=== PATIENT | male | born 1965 | race Caucasian/White ===

== ENCOUNTER → 2016-07-01 | Outpatient (REF) | payer OTHER ==
[~2016-07-01] MED LIST: AMLO5TAB2 PO; ASPI1TAB PO; LISI-538 PO; PRIL40CA PO; SIMV20TA2 PO; TYLE500T78 PO; VITA10002 PO; XARE15TA PO
[2016-07-01 18:20] LABS: ALBUMIN 3.7 GM/DL (3.2-5.2); ALBUMIN/GLOBULIN RATIO 1.03 (1.00-1.93); ALKALINE PHOSPHATASE 71 U/L (45-117); ALT/SGPT 25 U/L (12-78); ANION GAP 8 MEQ/L (8-16); AST/SGOT 16 U/L (15-37); BILIRUBIN,TOTAL 0.3 MG/DL (0.2-1.0); BLOOD UREA NITROGEN 13 MG/DL (7-18); CALCIUM LEVEL 8.7 MG/DL (8.5-10.1); CARBON DIOXIDE LEVEL 26 MEQ/L (21-32); CHLORIDE LEVEL 104 MEQ/L (98-107); CHOLESTEROL LEVEL 165 MG/DL (<200); CREATININE FOR GFR 0.93 MG/DL (0.70-1.30); GLOMERULAR FILTRATION RATE > 60.0 (>56); GLUCOSE, FASTING 115 MG/DL (70-105); POTASSIUM SERUM 3.7 MEQ/L (3.5-5.1); SODIUM LEVEL 138 MEQ/L (136-145); TOTAL PROTEIN 7.3 GM/DL (6.4-8.2); TRIGLYCERIDES LEVEL 313 MG/DL (<150)
== END ==
LOC: M SFHCPLAZ 15:01
PROVIDERS: ATTEND Nurse Practitioner Family
DX: I10 Essential (primary) hypertension (principal); E78.2 Mixed hyperlipidemia

== ENCOUNTER → 2016-07-17 | Outpatient (CLI) | payer OTHER ==
[~2016-07-17] MED LIST changes: +ISOVUE-370 76% 100ML VIAL (Q9967) As Ordered ONE
--- NOTE | 2016-07-17 11:25 | REP ---
Clinical: Acute shortness of breath. Comparison: 01/15/2016. Technique: Axial contrast enhanced images from the thoracic inlet to the upper abdomen using 100 ml Isovue 370 intravenous contrast material with multiplanar re-formations. Findings: Satisfactory enhancement of the pulmonary vasculature is achieved and no filling defects are identified to suggest pulmonary embolus. Further evaluation of the mediastinum demonstrates normal thoracic aorta, heart and pericardium. Small hiatal hernia noted. The bilateral lung goldberg are well aerated and clear without consolidation, nodule or mass lesion. No pleural effusion or pneumothorax. Tracheobronchial tree is patent. No adenopathy noted. Surrounding musculoskeletal structures intact Impression: No evidence for pulmonary embolus. Small hiatal hernia. No acute mediastinal or pleural parenchymal process. Signed by Thomas Fabian MD 07/17/2016 11:15 A
== END ==
LOC: M RAD 10:25
PROVIDERS: ATTEND Nurse Practitioner Family
DX: I26.99 Other pulmonary embolism without acute cor pulmonale (principal); K44.9 Diaphragmatic hernia without obstruction or gangrene

== ENCOUNTER → 2016-08-15 | Outpatient (CLI) | payer OTHER ==
[~2016-08-15] MED LIST changes: +E-Z-GAS II EFFERVESCENT PACKET (SODIUM BICARB./CITRIC ACID/SIMETHICONE) As Ordered ONE; +E-Z-HD 98% w/w 340GM SUSP BTL As Ordered ONE; +E-Z-PAQUE 96% w/w SUSP 176GM BTL As Ordered ONE; -ISOVUE-370 76% 100ML VIAL (Q9967) As Ordered ONE
--- NOTE | 2016-08-15 16:56 | REP ---
ESOPHAGRAM, AIR CONTRAST: The procedure was performed under the direct supervision of Dr. Barrios. The images were reviewed with Dr. Barrios. 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 The superior mediastinal structures are midline. The heart size is within normal limits. The lungs are clear. Liquid barium and gas-producing granules were given in the erect position as well as liquid barium in the prone oblique position in order to perform a double-contrast esophagram examination. The oral and pharyngeal stage of deglutition are unremarkable. Esophageal transport is prompt and efficient. In the distal esophagus just above the GE junction there is mucosal irregularity and mild narrowing. Recommend endoscopy for further evaluation. There is a small sliding type hiatal hernia present. There is gastroesophageal reflux demonstrated to the level of the marion. IMPRESSION: 1. There is a small sliding type hiatal hernia present. There is gastroesophageal reflux demonstrated to the level of the marion. 2. In the distal esophagus just above the GE junction there is mucosal irregularity and mild narrowing. Recommend endoscopy for further evaluation. 1 minute and 5 seconds of fluoroscopic time was utilized for this procedure. Reviewed by BRENDA Yu 08/16/2016 08:48 AEdited and Signed by Fabián Barrios MD 08/16/2016 12:45 P
== END ==
LOC: M RAD 08:17
PROVIDERS: ATTEND Physician Assistant Medical
DX: R13.10 Dysphagia, unspecified (principal); R12 Heartburn; K44.9 Diaphragmatic hernia without obstruction or gangrene; K22.8 Other specified diseases of esophagus

== ENCOUNTER → 2016-09-16 | Outpatient (CLI) | payer OTHER ==
[~2016-09-16] VITALS: Ht 177.8 cm; Wt 111.1 kg
[~2016-09-16] MED LIST changes: -E-Z-GAS II EFFERVESCENT PACKET (SODIUM BICARB./CITRIC ACID/SIMETHICONE) As Ordered ONE; -E-Z-HD 98% w/w 340GM SUSP BTL As Ordered ONE; -E-Z-PAQUE 96% w/w SUSP 176GM BTL As Ordered ONE; +LIDOCAINE 2% INJ 100 MG/5 ML SDV (FOR ANES.) As Ordered ONE; +NS 1,000 ML IV SCH; +PROPOFOL 200 MG/20 ML VIAL As Ordered ONE
--- NOTE | 2016-09-16 12:19 | ROOR ---
Patient Name: Jw Mares Procedure Date: 09/16/2016 11:57 AM Date of : 1965 Age: 51 Room: [facility] Gender: Male Note Status: Finalized Procedure: Upper GI endoscopy Indications: Heartburn, Abnormal UGI series Providers: Raimundo FONTAINE MD Referring MD: Joseph English MD Requesting Provider: Medicines: Monitored Anesthesia Care Complications: No immediate complications. Procedure: Pre-Anesthesia Assessment: - The heart rate, respiratory rate, oxygen saturations, blood pressure, adequacy of pulmonary ventilation, and response to care were monitored throughout the procedure. The Endoscope was introduced through the mouth, and advanced to the second part of duodenum. The upper GI endoscopy was accomplished without difficulty. The patient tolerated the procedure well. Findings: There were esophageal mucosal changes suggestive of short-segment Kee's esophagus present in the lower third of the esophagus. The maximum longitudinal extent of these mucosal changes was 2 cm in length. Mucosa was biopsied with a cold forceps for histology randomly in the lower third of the esophagus and from 36 to 38 cm from the incisors. A total of 2 specimen bottles were sent to pathology. A medium-sized hiatal hernia was present. The entire examined stomach was normal. The examined duodenum was normal. Impression: - Esophageal mucosal changes suggestive of short-segment (2 cm, smooth, tongues and circumferential) Kee's esophagus. Biopsied. - Medium-sized hiatal hernia. - Normal stomach. - Normal examined duodenum. Recommendation: - Use Prilosec (omeprazole) 40 mg Twice a day for Barretts Esophagus indefinitely. - Telephone endoscopist for pathology results in 2 weeks. - Repeat upper endoscopy in 3 years for surveillance. - (Repeat in 3 years, unless todays biopsy/pathology directs us otherwise) Raimundo Fontaine MD Raimundo FONTAINE MD 09/16/2016 12:18:43 PM This report has been signed electronically. Number of Addenda: 0 Note Initiated On: 09/16/2016 11:57 AM Estimated Blood Loss: Estimated blood loss: none.
--- NOTE | 2016-09-16 12:38 | ROOR ---
Patient Name: Jw Mares Procedure Date: 09/16/2016 11:58 AM Date of : 1965 Age: 51 Room: [facility] Gender: Male Note Status: Finalized Procedure: Colonoscopy Indications: Screening for colorectal malignant neoplasm Providers: Raimundo FONTAINE MD Referring MD: Joseph English MD Requesting Provider: Medicines: Monitored Anesthesia Care Complications: No immediate complications. Procedure: Pre-Anesthesia Assessment: - The heart rate, respiratory rate, oxygen saturations, blood pressure, adequacy of pulmonary ventilation, and response to care were monitored throughout the procedure. The Colonoscope was introduced through the anus and advanced to the terminal ileum, with identification of the appendiceal orifice and IC valve. The colonoscopy was performed without difficulty. The patient tolerated the procedure well. The quality of the bowel preparation was good. Findings: The perianal and digital rectal examinations were normal. A diminutive polyp was found in the sigmoid colon. The polyp was sessile. The polyp was removed with a jumbo cold forceps. Resection and retrieval were complete. The exam was otherwise without abnormality on direct and retroflexion views. Impression: - One diminutive polyp in the sigmoid colon, removed with a jumbo cold forceps. Resected and retrieved. - Small internal hemorrhoids - The colon exam was otherwise normal on direct and retroflexion views. Recommendation: - Telephone endoscopist for pathology results in 2 weeks. - If the pathology report reveals adenomatous tissue, then repeat the colonoscopy for surveillance in 5 years. Raimundo Fontaine MD Raimundo FONTAINE MD 09/16/2016 12:37:44 PM This report has been signed electronically. Number of Addenda: 0 Note Initiated On: 09/16/2016 11:58 AM Estimated Blood Loss: Estimated blood loss: none.
[2016-09-16 12:55] VITALS: BP 174/112
== END | disposition home or self-care (01) ==
LOC: M OPP 10:42
PROVIDERS: ATTEND Internal Medicine Gastroenterology
DX: Z12.11 Encounter for screening for malignant neoplasm of colon (principal); D12.5 Benign neoplasm of sigmoid colon; K64.8 Other hemorrhoids; K21.9 Gastro-esophageal reflux disease without esophagitis; K44.9 Diaphragmatic hernia without obstruction or gangrene; K20.9 Esophagitis, unspecified; K22.70 Barrett's esophagus without dysplasia; I10 Essential (primary) hypertension; E78.5 Hyperlipidemia, unspecified; Z86.711 Personal history of pulmonary embolism; Z79.899 Other long term (current) drug therapy; Z79.01 Long term (current) use of anticoagulants

== ENCOUNTER → 2017-01-28 | Outpatient (REF) | payer OTHER ==
[~2017-01-28] MED LIST changes: -LIDOCAINE 2% INJ 100 MG/5 ML SDV (FOR ANES.) As Ordered ONE; -NS 1,000 ML IV SCH; -PROPOFOL 200 MG/20 ML VIAL As Ordered ONE
[2017-01-28 15:20] LABS: ALBUMIN 3.8 GM/DL (3.2-5.2); ALBUMIN/GLOBULIN RATIO 1.06 (1.00-1.93); ALKALINE PHOSPHATASE 74 U/L (45-117); ALT/SGPT 33 U/L (12-78); ANION GAP 8 MEQ/L (8-16); AST/SGOT 21 U/L (15-37); BILIRUBIN,TOTAL 0.6 MG/DL (0.2-1.0); BLOOD UREA NITROGEN 15 MG/DL (7-18); CALCIUM LEVEL 8.8 MG/DL (8.5-10.1); CARBON DIOXIDE LEVEL 30 MEQ/L (21-32); CHLORIDE LEVEL 102 MEQ/L (98-107); CREATININE FOR GFR 0.98 MG/DL (0.70-1.30); GLOMERULAR FILTRATION RATE > 60.0 (>56); GLUCOSE, FASTING 72 MG/DL (70-105); POTASSIUM SERUM 3.9 MEQ/L (3.5-5.1); SODIUM LEVEL 140 MEQ/L (136-145); TOTAL PROTEIN 7.4 GM/DL (6.4-8.2)
== END ==
LOC: M SFHCPLAZ 10:20
PROVIDERS: ATTEND Nurse Practitioner Family
DX: I10 Essential (primary) hypertension (principal)

== ENCOUNTER → 2017-02-21 | Outpatient (CLI) | payer OTHER ==
--- NOTE | 2017-02-26 13:52 | SLEEPHOME ---
DATE OF PROCEDURE: 02/21/2017 ORDERED BY: Yadira Camp NP Diagnostic home sleep testing was performed due to concern for the obstructive sleep apnea syndrome. For testing, a NOX-T3 respiratory monitoring device was used. Continuous record was made of pulse, oxygen saturation, airflow, chest and abdominal strain, and body position. 10 hours and 59 minutes of data were reviewed. There were 5 hours and 14 minutes marked as time in bed. During the interval marked time in bed, there were 169 respiratory events identified of 10 seconds in duration or greater for a respiratory event index of 32.3. The events were primarily obstructive. Baseline pulse rate 55 beats per minute. Pulse rate ranged 45-77. Baseline saturation 93.8%. Lowest oxygen saturation recorded 73%. Testing was performed in both the supine and non-supine positions. IMPRESSION: Abnormal home sleep testing with repetitive respiratory events and oxygen desaturation to 73% with a respiratory event index of 32.3 is consistent with the obstructive sleep apnea syndrome. RECOMMENDATION: The patient should be referred for formal sleep evaluation and in-laboratory pressure titration.
== END ==
LOC: M SLEEP HO 14:09
PROVIDERS: ATTEND Nurse Practitioner Adult Health
DX: G47.9 Sleep disorder, unspecified (principal)

== ENCOUNTER → 2017-07-20 | Outpatient (REF) | payer OTHER, SELFPAY | LOC: M LAB REF 19:11 | DX: J02.9 Acute pharyngitis, unspecified (principal) | CPT/HCPCS: 87070 ==

== ENCOUNTER 2017-07-22 07:31 | Emergency (ER) | payer SELFPAY, OTHER | END 2017-07-22 09:00 | disposition home or self-care (01) | LOC: M ED 07:31 | DX: S29.011A Strain of muscle and tendon of front wall of thorax, initial encounter (principal); X50.9XXA Other and unspecified overexertion or strenuous movements or postures, initial encounter; Y92.39 Other specified sports and athletic area as the place of occurrence of the external cause; Y93.54 Activity, bowling; E66.9 Obesity, unspecified; I10 Essential (primary) hypertension; F41.9 Anxiety disorder, unspecified; Z79.899 Other long term (current) drug therapy; Z86.711 Personal history of pulmonary embolism | CPT/HCPCS: 99284 ==

== ENCOUNTER → 2017-11-07 | Outpatient (REF) | payer OTHER | LOC: M SFHCPLAZ 17:38 | DX: I10 Essential (primary) hypertension (principal); E78.2 Mixed hyperlipidemia ==

== ENCOUNTER → 2017-11-14 | Outpatient (REF) | payer OTHER | LOC: M SFHCPLAZ 09:54 | DX: I10 Essential (primary) hypertension (principal); E78.2 Mixed hyperlipidemia ==

== ENCOUNTER → 2017-11-25 | Outpatient (REF) | payer OTHER ==
[2017-11-25 13:03] LABS: ALBUMIN 3.6 GM/DL (3.2-5.2); ALBUMIN/GLOBULIN RATIO 0.92 (1.00-1.93); ALKALINE PHOSPHATASE 69 U/L (45-117); ALT/SGPT 34 U/L (12-78); ANION GAP 11 MEQ/L (8-16); AST/SGOT 17 U/L (7-37); BILIRUBIN,TOTAL 0.5 MG/DL (0.2-1.0); BLOOD UREA NITROGEN 12 MG/DL (7-18); CALCIUM LEVEL 8.8 MG/DL (8.5-10.1); CARBON DIOXIDE LEVEL 25 MEQ/L (21-32); CHLORIDE LEVEL 106 MEQ/L (98-107); CHOLESTEROL LEVEL 178 MG/DL (<200); CREATININE FOR GFR 0.86 MG/DL (0.70-1.30); FREE T4 1.03 NG/DL (0.76-1.46); GLOMERULAR FILTRATION RATE > 60.0 (>56); GLUCOSE, FASTING 101 MG/DL (70-100); HDL CHOLESTEROL 40 MG/DL (>40); LDL CHOLESTEROL 105.4 MG/DL (<100); NON-HDL-C 138 MG/DL; POTASSIUM SERUM 3.9 MEQ/L (3.5-5.1); SODIUM LEVEL 142 MEQ/L (136-145); TOTAL PROTEIN 7.5 GM/DL (6.4-8.2); TRIGLYCERIDES LEVEL 163 MG/DL (<150)
[2017-11-25 13:20] LABS: MALB URINE SIEMENS 15.5 MG/L; MAU/CREAT RATIO 13.2 MCG/MG (0.0-30.0)
== END ==
LOC: M SFHCPLAZ 09:19
DX: I10 Essential (primary) hypertension (principal); E78.2 Mixed hyperlipidemia
CPT/HCPCS: 84443

== ENCOUNTER 2018-05-27 16:21 | Emergency (ER) | payer OTHER ==
[~2018-05-27] VITALS: Ht 177.8 cm; Wt 113.6 kg
[~2018-05-27 16:21] MED LIST changes: -AMLO5TAB2 PO; +AMLO5TAB6 PO; +NAPR-50 PO
[2018-05-27] MEDS ORDERED: KETOROLAC TROMETHAMINE 10 MG TAB PO ONE (17:30)
--- NOTE | 2018-05-27 17:53 | REP ---
Clinical: Pain with recent trauma. Technique: AP, lateral, bilateral oblique and sunrise views of the right knee. Findings: Mild age-related degenerative changes include cortical irregularities to the femoral condyles and proximal tibia. Minimal increased sclerosis to the medial tibial plateau noted with subtle joint space narrowing. Surrency view demonstrates fraying along the anterior margin of the patella with overlying soft tissue swelling suggesting patellar tendinopathy. Impression: Age-related degenerative changes along with patellar tendinopathy. Anterior swelling. No acute fracture or dislocation. Electronically Signed by Thomas Fabian MD 05/27/2018 05:45 P
[2018-05-27] MEDS ORDERED: NAPR-50 PO (18:02)
[2018-05-27 18:14] VITALS: BP 160/96
== END 2018-05-27 18:16 | disposition home or self-care (01) ==
LOC: M ED 16:21
DX: S83.91XA Sprain of unspecified site of right knee, initial encounter (principal); V58.4XXA Person boarding or alighting a pick-up truck or van injured in noncollision transport accident, initial encounter; Y92.89 Other specified places as the place of occurrence of the external cause; I10 Essential (primary) hypertension; F41.9 Anxiety disorder, unspecified; Z86.711 Personal history of pulmonary embolism; Z79.899 Other long term (current) drug therapy

== ENCOUNTER → 2018-07-07 | Outpatient (REF) | payer OTHER ==
[2018-07-07 16:26] LABS: BLOOD UREA NITROGEN 14 MG/DL (7-18); CALCIUM LEVEL 8.9 MG/DL (8.5-10.1); CARBON DIOXIDE LEVEL 32 MEQ/L (21-32); CHLORIDE LEVEL 107 MEQ/L (98-107); CREATININE FOR GFR 1.01 MG/DL (0.70-1.30); GLOMERULAR FILTRATION RATE > 60.0 (>56); GLUCOSE, FASTING 84 MG/DL (70-100); POTASSIUM SERUM 4.1 MEQ/L (3.5-5.1); SODIUM LEVEL 143 MEQ/L (136-145)
== END ==
LOC: M SFHCPLAZ 14:16
PROVIDERS: ATTEND Family Medicine
DX: I10 Essential (primary) hypertension (principal)

== ENCOUNTER 2018-08-13 08:44 | Outpatient (RCR) | payer OTHER ==
[~2018-08-13 08:44] MED LIST changes: -ASPI1TAB PO; +ASPI81TA26 PO; -NAPR-50 PO; +NAPR-837 PO
== END 2018-08-25 ==
LOC: M PT 08:44
PROVIDERS: ATTEND Physician Assistant Surgical
DX: M25.561 Pain in right knee (principal)

== ENCOUNTER 2018-12-02 18:05 | Emergency (ER) | payer OTHER ==
[~2018-12-02] VITALS: Ht 177.8 cm; Wt 123.0 kg
[~2018-12-02 18:05] MED LIST changes: +CYAN100049 PO; -SIMV20TA2 PO; +SIMV20TA22 PO; -VITA10002 PO
[2018-12-02] MEDS ORDERED: ASPI81TA26 PO (18:15)
[2018-12-02] MEDS ORDERED: BENA40TA5 PO (18:15)
[2018-12-02] MEDS ORDERED: FLUT15.820 INH (18:15)
[2018-12-02] MEDS ORDERED: HYDR25TAB PO (18:15)
[2018-12-02 19:46] LABS: BASO # 0.1 10^3/uL (0.0-0.2); BASO % 0.8 % (0.0-1.0); EOS # 0.2 10^3/uL (0.0-0.50); EOS % 2.4 % (0.0-3.0); HEMATOCRIT 46.3 % (42.0-52.0); HEMOGLOBIN 15.4 g/dl (13.5-17.5); LYMPH # 3.2 10^3/uL (1.5-4.5); LYMPH % 34.9 % (24.0-44.0); MEAN CORPUSCULAR HEMOGLOBIN 28.2 pg (27.0-33.0); MEAN CORPUSCULAR HGB CONC 33.3 g/dl (32.0-36.5); MEAN CORPUSCULAR VOLUME 84.8 fl (80.0-96.0); MONO # 0.7 10^3/uL (0.0-0.8); MONO % 7.4 % (0.0-5.0); NEUTROPHILS % 54.2 % (36.0-66.0); PLATELET COUNT, AUTOMATED 268 10^3/uL (150-450); RED BLOOD COUNT 5.46 10^6/uL (4.30-6.10); WHITE BLOOD COUNT 9.2 10^3/uL (4.0-10.0)
[2018-12-02 20:34] LABS: INR 1.07; PROTHROMBIN TIME 13.6 SECONDS (11.8-14.0)
[2018-12-02 20:35] LABS: PARTIAL THROMBOPLASTIN TIME 26.4 SECONDS (25.0-38.4)
[2018-12-02] MEDS ORDERED: ISOVUE-370 76% 100ML VIAL (Q9967) As Ordered ONE (21:20)
--- NOTE | 2018-12-02 22:16 | REPVR ---
EXAM: CT Abdomen and Pelvis With Contrast EXAM DATE/TIME: 12/02/2018 9:39 PM CLINICAL HISTORY: 53 years old, male; Abdominal pain; Localized; Left lower quadrant (llq); Additional info: Llq pain/bruising after fall TECHNIQUE: Imaging protocol: Axial computed tomography images of the abdomen and pelvis with intravenous contrast. Coronal and sagittal reformatted images were created and reviewed. Radiation optimization: All CT scans at this facility use at least one of these dose optimization techniques: automated exposure control; mA and/or kV adjustment per patient size (includes targeted exams where dose is matched to clinical indication); or iterative reconstruction. Contrast material: ISOVUE 370;Contrast volume: 100 ml;Contrast route: IV; COMPARISON: CT ABD PELVIS W/O FOL BY WIT 02/19/2016 4:40 PM FINDINGS: Lungs: Minimal dependent atelectasis in the lower lobes. Liver: Normal. No mass. Gallbladder and bile ducts: The gallbladder is contracted with no stones. Pancreas: Normal. No ductal dilation. Spleen: Normal. No splenomegaly. Adrenals: Normal. No mass. Kidneys and ureters: Parenchymal thinning in the upper right kidney. Stomach and bowel: Normal. No obstruction. No mucosal thickening. Appendix: A normal appendix is seen. Intraperitoneal space: Normal. No free air. No significant fluid collection. Vasculature: Normal. No abdominal aortic aneurysm. Lymph nodes: Normal. No enlarged lymph nodes. Bladder: Unremarkable as visualized. Reproductive: Unremarkable as visualized. Bones/joints: Degenerative changes of the lumbar spine with segmental ankylosis of the lower thoracic spine to the T12 level. Fusion of the SI joints with anterior osseous bridging. Soft tissues: Mild fat filled umbilical hernia. IMPRESSION: 1. There has been little change from 02/19/2016. No acute interval process is identified. 2. Focal parenchymal thinning in the upper right kidney which is similar. 3. Fat filled umbilical hernia. Electronically signed by: Freddie Tobar On 12/02/2018 22:15:45 PM
[2018-12-02 23:39] VITALS: BP 188/102
== END 2018-12-02 23:41 | disposition home or self-care (01) ==
LOC: M ED 18:05
DX: S39.91XA Unspecified injury of abdomen, initial encounter (principal); W22.8XXA Striking against or struck by other objects, initial encounter; Y92.814 Boat as the place of occurrence of the external cause; I10 Essential (primary) hypertension; F41.9 Anxiety disorder, unspecified; Z79.899 Other long term (current) drug therapy; Z79.82 Long term (current) use of aspirin
CPT/HCPCS: 36415; 74177; 80047; 83605; 85025; 85610; 85730; 99284; Q9967

== ENCOUNTER → 2019-01-07 | Outpatient (REF) | payer OTHER ==
[~2019-01-07] MED LIST changes: +BENA40TA7 PO; +FLUT15.820 INH; +HYDR25TAB PO; +SIMV20TA2 PO; -SIMV20TA22 PO
[2019-01-07 13:45] LABS: ALBUMIN 3.8 GM/DL (3.2-5.2); ALT/SGPT 36 U/L (12-78); BILIRUBIN,TOTAL 0.5 MG/DL (0.2-1.0); BLOOD UREA NITROGEN 16 MG/DL (7-18); CALCIUM LEVEL 9.3 MG/DL (8.5-10.1); CARBON DIOXIDE LEVEL 26 MEQ/L (21-32); CHLORIDE LEVEL 105 MEQ/L (98-107); CHOLESTEROL LEVEL 177 MG/DL (<200); CHOLESTEROL RISK RATIO 4.317 (<5); CREATININE FOR GFR 1.01 MG/DL (0.70-1.30); GLOMERULAR FILTRATION RATE > 60.0 (>56); GLUCOSE, FASTING 106 MG/DL (70-100); HDL CHOLESTEROL 41 MG/DL (>40); LDL CHOLESTEROL 110 MG/DL (<100); NON-HDL-C 136 MG/DL; POTASSIUM SERUM 3.7 MEQ/L (3.5-5.1); SODIUM LEVEL 140 MEQ/L (136-145); TOTAL PROTEIN 7.3 GM/DL (6.4-8.2); TRIGLYCERIDES LEVEL 128 MG/DL (<150)
[2019-01-07 14:13] LABS: MALB URINE SIEMENS 34.3 MG/L; MAU/CREAT RATIO 13.8 MCG/MG (0.0-30.0)
== END ==
LOC: M SFHCPLAZ 08:39
PROVIDERS: ATTEND Nurse Practitioner Family
DX: I10 Essential (primary) hypertension (principal); E78.2 Mixed hyperlipidemia

== ENCOUNTER 2019-01-12 09:00 | Emergency (ER) | payer OTHER ==
[~2019-01-12] VITALS: Ht 177.8 cm; Wt 121.8 kg
[2019-01-12] MEDS ORDERED: IBUPROFEN 800 MG TAB PO ONE (10:15)
--- NOTE | 2019-01-12 10:31 | REP ---
LEFT KNEE, FIVE VIEWS: Five views of the left knee performed. No fracture or dislocation is seen. There is mild medial joint space narrowing and subchondral sclerosis. There is diffuse spurring. There appears to be a small joint effusion. IMPRESSION: Degenerative changes. No fracture. Small joint effusion. Electronically Signed by Blane Yañez MD 01/13/2019 10:07 A
[2019-01-12 10:36] VITALS: BP 144/92
== END 2019-01-12 10:39 | disposition home or self-care (01) ==
LOC: M ED 09:00
DX: S83.92XA Sprain of unspecified site of left knee, initial encounter (principal); X58.XXXA Exposure to other specified factors, initial encounter; Y92.89 Other specified places as the place of occurrence of the external cause; M25.462 Effusion, left knee; I10 Essential (primary) hypertension; E78.5 Hyperlipidemia, unspecified; Z79.899 Other long term (current) drug therapy; Z79.82 Long term (current) use of aspirin

== ENCOUNTER → 2019-05-05 | Outpatient (REF) | payer OTHER ==
[~2019-05-05] MED LIST changes: +BENA40TA5 PO; -BENA40TA7 PO; +FLOM0.4C39 PO; +NORC1TAB7 PO; +ONDA4TAB6 PO; -SIMV20TA2 PO; +SIMV20TA22 PO
[2019-05-05 10:57] LABS: HEMOGLOBIN A1c 6.3 %
== END ==
LOC: M SFHCPLAZ 08:23
PROVIDERS: ATTEND Family Medicine
DX: R73.03 Prediabetes (principal)

== ENCOUNTER 2019-05-10 08:53 | Emergency (ER) | payer OTHER ==
[~2019-05-10] VITALS: Ht 177.8 cm; Wt 127.1 kg
[~2019-05-10 08:53] MED LIST changes: -FLOM0.4C39 PO; -NORC1TAB7 PO; -ONDA4TAB6 PO
[2019-05-10] MEDS ORDERED: MORPHINE 4 MG/ML 1ML VIAL/SYRINGE (J2270) IV ONE ×2 (09:15→10:45)
[2019-05-10] MEDS ORDERED: ONDANSETRON 4MG/2ML VIAL (J2405) IV ONE (09:15)
[2019-05-10 10:08] LABS: BASO # 0.1 10^3/uL (0.0-0.2); BASO % 0.6 % (0.0-1.0); EOS # 0.1 10^3/uL (0.0-0.5); EOS % 0.5 % (0.0-3.0); HEMATOCRIT 48.2 % (42.0-52.0); LYMPH # 1.6 10^3/uL (1.5-5.0); LYMPH % 14.7 % (24.0-44.0); MEAN CORPUSCULAR HEMOGLOBIN 26.7 pg (27.0-33.0); MEAN CORPUSCULAR HGB CONC 31.1 g/dl (32.0-36.5); MEAN CORPUSCULAR VOLUME 85.9 fl (80.0-96.0); MONO # 0.5 10^3/uL (0.0-0.8); MONO % 4.4 % (0.0-5.0); NEUTROPHILS # 8.5 10^3/uL (1.5-8.5); NEUTROPHILS % 79.5 % (36.0-66.0); PLATELET COUNT, AUTOMATED 297 10^3/uL (150-450); RED BLOOD COUNT 5.61 10^6/uL (4.30-6.10); WHITE BLOOD COUNT 10.7 10^3/uL (4.0-10.0)
[2019-05-10 10:39] LABS: ALBUMIN 3.8 GM/DL (3.2-5.2); ALT/SGPT 29 U/L (12-78); BILIRUBIN,DIRECT 0.1 MG/DL (0.0-0.2); BILIRUBIN,TOTAL 0.3 MG/DL (0.2-1.0); BLOOD UREA NITROGEN 15 MG/DL (7-18); CALCIUM LEVEL 9.2 MG/DL (8.5-10.1); CARBON DIOXIDE LEVEL 24 MEQ/L (21-32); CHLORIDE LEVEL 108 MEQ/L (98-107); CREATININE FOR GFR 1.25 MG/DL (0.70-1.30); GLOMERULAR FILTRATION RATE > 60.0 (>56); GLUCOSE, FASTING 162 MG/DL (70-100); LIPASE 63 U/L (73-393); POTASSIUM SERUM 3.7 MEQ/L (3.5-5.1); SODIUM LEVEL 140 MEQ/L (136-145); TOTAL PROTEIN 7.5 GM/DL (6.4-8.2)
[2019-05-10] MEDS ORDERED: BENAZEPRIL 20 MG TAB PO ONE (10:45)
[2019-05-10] MEDS ORDERED: lisinopriL 20 MG TAB PO ONE (10:45)
[2019-05-10] MEDS ORDERED: hydroCHLOROthiazide 25 MG TAB PO ONE (10:45)
[2019-05-10] MEDS ORDERED: amLODIPine 5 MG TAB PO ONE (10:45)
--- NOTE | 2019-05-10 11:12 | REP ---
CT ABDOMEN AND PELVIS WITHOUT IV OR ORAL CONTRAST: HISTORY: Right flank pain. Rule out stone. 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 There is a small sliding-type hiatal hernia. The liver and the spleen are normal in size, homogeneous in texture. No abnormalities noted in the pancreas or the gallbladder. No adrenal lesion is seen. There is cortical scarring in the upper pole of the right kidney again noted. There is mild hydronephrosis affecting the right kidney, renal pelvis, and collecting system. Right ureter is mildly prominent. There is a tiny calcification in the right distal ureter, 2 cm above the ureterovesical junction, consistent with a tiny right ureterolith. No left-sided urinary tract calculus is seen. The urinary bladder is largely empty. Prostate and seminal vesicles are unremarkable. Small and large bowel loops are unremarkable in the abdomen and pelvis. Normal appendix is seen in the right lower quadrant. No left-sided hydronephrosis seen. There is a ventral hernia transmitting omental fat in the periumbilical region again noted. IMPRESSION: Mild right-sided hydronephrosis and hydroureter due to a tiny calcification in the distal ureter on the right, approximately 2 cm above the ureterovesical junction. Stable scarring upper pole right kidney. Electronically Signed by Fabián Barrios MD 05/10/2019 02:48 P
[2019-05-10 11:13] VITALS: BP 198/95
[2019-05-10] MEDS ORDERED: TAMSULOSIN 0.4 MG CAP PO ONE (12:30)
[2019-05-10] MEDS ORDERED: FLOM0.4C39 PO (12:35)
[2019-05-10] MEDS ORDERED: KETOROLAC 30 MG/ML VIAL (J1885) IV ONE (12:45)
[2019-05-10] MEDS ORDERED: METOCLOPRAMIDE INJ 10MG/2ML VIAL (J2765) IV ONE (13:30)
[2019-05-10] MEDS ORDERED: ONDA4TAB6 PO (13:44)
[2019-05-10] MEDS ORDERED: NORC1TAB7 PO (14:12)
[2019-05-10 14:51] VITALS: BP 147/80
== END 2019-05-10 14:53 | disposition home or self-care (01) ==
LOC: M ED 08:53
DX: N13.2 Hydronephrosis with renal and ureteral calculous obstruction (principal); N23 Unspecified renal colic; N13.4 Hydroureter; E78.5 Hyperlipidemia, unspecified; K21.9 Gastro-esophageal reflux disease without esophagitis; I10 Essential (primary) hypertension; Z79.82 Long term (current) use of aspirin; Z79.899 Other long term (current) drug therapy
CPT/HCPCS: 74176; 80048; 80076; 81001; 83690; 85025; 96374; 96375; 96376; 99284; J1885; J2270; J2405; J2765

== ENCOUNTER → 2019-10-04 | Outpatient (CLI) | payer OTHER, SELFPAY ==
[~2019-10-04] MED LIST changes: +FLOM0.4C39 PO; +NORC1TAB7 PO; +OMEP40CA97 PO; +ONDA4TAB6 PO
== END ==
LOC: M LABSMTC 10:31
PROVIDERS: ATTEND Anesthesiology
DX: Z03.818 Encounter for observation for suspected exposure to other biological agents ruled out (principal); Z11.59 Encounter for screening for other viral diseases
CPT/HCPCS: C9803; U0003

== ENCOUNTER 2019-10-07 12:55 | Day surgery (SDC) | payer OTHER ==
[~2019-10-07] VITALS: Ht 177.8 cm; Wt 121.1 kg
[~2019-10-07 12:55] MED LIST changes: +NS 1,000 ML IV ONE
--- NOTE | 2019-10-07 14:56 | ROOR ---
Patient Name: Jw Mares Procedure Date: 10/07/2019 2:36 PM Date of : 1965 Age: 54 Room: [facility] Gender: Male Note Status: Finalized Procedure: Upper GI endoscopy Indications: Surveillance for malignancy due to personal history of Kee's esophagus Providers: Raimundo FONTAINE MD Referring MD: Joseph English MD Requesting Provider: Medicines: Monitored Anesthesia Care Complications: No immediate complications. Procedure: Pre-Anesthesia Assessment: - The heart rate, respiratory rate, oxygen saturations, blood pressure, adequacy of pulmonary ventilation, and response to care were monitored throughout the procedure. The Endoscope was introduced through the mouth, and advanced to the second part of duodenum. The upper GI endoscopy was accomplished without difficulty. The patient tolerated the procedure well. Findings: The esophagus and gastroesophageal junction were examined with white light and narrow band imaging (NBI) from a forward view and retroflexed position. There were esophageal mucosal changes consistent with short-segment Kee's esophagus. These changes involved the mucosa at the upper extent of the gastric folds (38 cm from the incisors) extending to the Z-line (36 cm from the incisors). Dupuyer-colored mucosa was present and no visible abnormalities were present. The maximum longitudinal extent of these esophageal mucosal changes was 2 cm in length. Mucosa was biopsied with a cold forceps for histology randomly. A total of 2 specimen bottles were sent to pathology. A medium-sized hiatal hernia was present. The entire examined stomach was normal. The examined duodenum was normal. Impression: - Esophageal mucosal changes consistent with short-segment (2 cm) Kee's esophagus. Biopsied. - Medium-sized hiatal hernia. - Normal stomach. - Normal examined duodenum. Recommendation: - Use Prilosec (omeprazole) 20 mg PO BID indefinitely. - Repeat upper endoscopy in 3 years for surveillance. Raimundo Fontaine MD Raimundo FONTAINE MD 10/07/2019 2:56:23 PM Electronically signed by Raimundo FONTAINE MD Number of Addenda: 0 Note Initiated On: 10/07/2019 2:36 PM Estimated Blood Loss: Estimated blood loss: none.
[2019-10-07 15:20] VITALS: BP 167/99
[2019-10-07] MEDS ORDERED: fentaNYL 100 MCG/2 ML INJECTION (J3010) As Ordered ONE (15:27)
[2019-10-07] MEDS ORDERED: LIDOCAINE 2% 100MG/5ML SDV (FOR ANES.) As Ordered ONE (15:28)
[2019-10-07] MEDS ORDERED: propofoL 200 MG/20 ML VIAL As Ordered ONE (15:28)
== END 2019-10-07 15:54 | disposition home or self-care (01) ==
LOC: M OPP 12:55
PROVIDERS: ATTEND Internal Medicine Gastroenterology
DX: K44.9 Diaphragmatic hernia without obstruction or gangrene (principal); K22.70 Barrett's esophagus without dysplasia; Z79.82 Long term (current) use of aspirin; Z79.899 Other long term (current) drug therapy
CPT/HCPCS: 43239; 88305; J3010

== ENCOUNTER → 2019-11-03 | Outpatient (REF) | payer OTHER ==
[~2019-11-03] MED LIST changes: +AMLO1TAB24 PO; -AMLO5TAB6 PO; -NS 1,000 ML IV ONE
== END ==
LOC: M SFHCPLAZ 09:07
PROVIDERS: ATTEND Family Medicine
DX: R60.0 Localized edema (principal); R73.03 Prediabetes

== ENCOUNTER → 2020-04-24 | Outpatient (CLI) | payer SELFPAY | LOC: M LABSMTC 11:04 | PROVIDERS: ATTEND Pediatrics | DX: Z20.828 Contact with and (suspected) exposure to other viral communicable diseases (principal) ==

== ENCOUNTER → 2020-09-05 | Outpatient (REF) | payer OTHER ==
[~2020-09-05] MED LIST changes: +HYDR-3490 PO; -HYDR25TAB PO; -LISI-538 PO; +LISI20TA33 PO
[2020-09-05 17:29] LABS: APPEARANCE, URINE CLEAR (CLEAR); BACTERIA, URINE AUTO NEGATIVE (NEGATIVE); BILIRUBIN, URINE AUTO NEGATIVE (NEGATIVE); BLOOD, URINE BLOOD NEGATIVE (NEGATIVE); COLOR, URINE YELLOW (YELLOW); GLUCOSE, URINE (UA) AUTO NEGATIVE (NEGATIVE); KETONE, URINE AUTO NEGATIVE (NEGATIVE); LEUKOCYTE ESTERASE, URINE AUTO NEGATIVE (NEGATIVE); MUCUS, URINE SMALL (NEGATIVE); NITRITE, URINE AUTO NEGATIVE (NEGATIVE); PROTEIN, URINE AUTO NEGATIVE (NEGATIVE); RBC, URINE AUTO 1 /HPF (0-3); SPECIFIC GRAVITY URINE AUTO 1.019 (1.002-1.035); SQUAMOUS EPITHELIAL CELL UR AU 0 /HPF (0-6); UROBILINOGEN, URINE AUTO 0.2 mg/dL (0.0-2.0); WBC, URINE AUTO 1 /HPF (0-3)
[2020-09-05 18:44] LABS: MALB URINE SIEMENS 33.6 MG/L; MAU/CREAT RATIO 19.5 MCG/MG (0.0-30.0)
== END ==
LOC: M SFHCWAGY 16:56
PROVIDERS: ATTEND Student in an Organized Health Care Education/Training Program
DX: I11.0 Hypertensive heart disease with heart failure (principal)

== ENCOUNTER → 2020-09-05 | Outpatient (REF) | payer OTHER | LOC: M SFHCPLAZ 09:21 | PROVIDERS: ATTEND Family Medicine | DX: Z53.20 Procedure and treatment not carried out because of patient's decision for unspecified reasons (principal) ==

== ENCOUNTER → 2020-09-20 | Outpatient (CLI) | payer OTHER ==
--- NOTE | 2020-09-20 08:08 | REP ---
INDICATION: HYPERTENSION PT HAVING LABS FIRST COMPARISON: 01/06/2016 TECHNIQUE: Real time hogan scale ultrasound examination using curved array transducer followed by color Doppler evaluation of the renal vasculature. FINDINGS: Kidneys are normal in reniform shape and demonstrate increased central sinus fat consistent with chronic medical renal disease. No hydronephrosis, nephrolithiasis, cystic or renal mass lesion. Right kidney measures 13.5 x 6.3 x 6.5 cm. Left kidney measures 13.0 x 5.2 x 6.3 cm. Prostate gland measures 5.3 x 4.0 x 4.9 cm (54 cc). Bladder is grossly normal. ------ Color Doppler evaluation. Peak aortic velocity: 146 centimeters/second RIGHT KIDNEY Renal arterial velocity: 100 centimeters/second Renal-aortic ratio: 0.68 Intrarenal resistive indices: 0.61-0.67 Intrarenal acceleration times: 0.036-0.042 LEFT KIDNEY Renal arterial velocity: 109 centimeters/second Renal-aortic ratio: 0.74 Intrarenal resistive indices: 0.66-0.68 Intrarenal acceleration times: 0.038-0.040 IMPRESSION: 1. Kidneys demonstrate chronic renal disease without hydronephrosis or obvious abnormality. 2. Doppler interegation without sonographic evidence for renal arterial stenosis. 3. Prostatomegaly. <Electronically signed by Thomas Fabian > 09/20/20 [id number]
== END ==
LOC: M RAD 06:15
PROVIDERS: ATTEND Student in an Organized Health Care Education/Training Program
DX: R73.03 Prediabetes (principal); I10 Essential (primary) hypertension

== ENCOUNTER → 2020-10-03 | Outpatient (REF) | payer OTHER | LOC: M SFHCPLAZ 14:11 | PROVIDERS: ATTEND Family Medicine | DX: N40.0 Benign prostatic hyperplasia without lower urinary tract symptoms (principal) ==

== ENCOUNTER → 2020-11-01 | Outpatient (CLI) | payer OTHER ==
[~2020-11-01] MED LIST changes: +OMEP40CA4 PO; -OMEP40CA97 PO
[2020-11-01 15:32] LABS: HEMATOCRIT 46.8 % (42.0-52.0); HEMOGLOBIN 15.1 g/dl (13.5-17.5); MEAN CORPUSCULAR HEMOGLOBIN 27.4 pg (27.0-33.0); MEAN CORPUSCULAR HGB CONC 32.3 g/dl (32.0-36.5); MEAN CORPUSCULAR VOLUME 84.8 fl (80.0-96.0); PLATELET COUNT, AUTOMATED 283 10^3/uL (150-450); RED BLOOD COUNT 5.52 10^6/uL (4.30-6.10); WHITE BLOOD COUNT 6.2 10^3/uL (4.0-10.0)
[2020-11-01 15:43] LABS: INR 0.94; PROTHROMBIN TIME 12.8 SECONDS (12.5-14.3)
[2020-11-01 15:59] LABS: ERYTHROCYTE SEDIMENTATION RATE 7 mm/hr (0-20)
== END ==
LOC: M PLALAB 11:52
PROVIDERS: ATTEND Orthopaedic Surgery
DX: Z01.812 Encounter for preprocedural laboratory examination (principal); M17.12 Unilateral primary osteoarthritis, left knee

== ENCOUNTER → 2020-11-01 | Outpatient (CLI) | payer OTHER | LOC: M PLALAB 11:50 | PROVIDERS: ATTEND Student in an Organized Health Care Education/Training Program | DX: N40.0 Benign prostatic hyperplasia without lower urinary tract symptoms (principal) ==

== ENCOUNTER → 2020-11-06 | Outpatient (CLI) | payer OTHER ==
--- NOTE | 2020-11-06 20:56 | ECGEPIP ---
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
--- NOTE | 2020-11-06 22:35 | REP ---
INDICATION: L KNEE OSTEOARTHRITIS COMPARISON: 01/05/2016 TECHNIQUE: PA and lateral. FINDINGS: The mediastinum and cardiac silhouette are normal. The lung goldberg are clear and without acute consolidation, effusion, or pneumothorax. The skeletal structures are intact and normal. IMPRESSION: No acute cardiopulmonary process. <Electronically signed by Thomas Fabian > 11/06/20 [id number]
== END ==
LOC: M EKG 14:16
PROVIDERS: ATTEND Orthopaedic Surgery
DX: Z01.818 Encounter for other preprocedural examination (principal); M17.12 Unilateral primary osteoarthritis, left knee

== ENCOUNTER → 2020-11-08 | Outpatient (REF) | payer OTHER | LOC: M SFHCPLAZ 11:54 | PROVIDERS: ATTEND Family Medicine | DX: Z01.818 Encounter for other preprocedural examination (principal) ==

== ENCOUNTER → 2020-11-13 | Outpatient (CLI) | payer OTHER ==
[2020-11-13 14:12] LABS: ALBUMIN 3.7 GM/DL (3.2-5.2); ALT/SGPT 35 U/L (12-78); BILIRUBIN,TOTAL 0.5 MG/DL (0.2-1.0); BLOOD UREA NITROGEN 13 MG/DL (7-18); CALCIUM LEVEL 9.2 MG/DL (8.5-10.1); CARBON DIOXIDE LEVEL 32 MEQ/L (21-32); CHLORIDE LEVEL 104 MEQ/L (98-107); CREATININE FOR GFR 0.87 MG/DL (0.70-1.30); GLOMERULAR FILTRATION RATE > 60.0 (>56); GLUCOSE, FASTING 101 MG/DL (70-100); POTASSIUM SERUM 3.8 MEQ/L (3.5-5.1); SODIUM LEVEL 140 MEQ/L (136-145); TOTAL PROTEIN 6.9 GM/DL (6.4-8.2)
== END ==
LOC: M PLALAB 12:13
PROVIDERS: ATTEND Student in an Organized Health Care Education/Training Program
DX: Z01.818 Encounter for other preprocedural examination (principal)

== ENCOUNTER → 2021-06-05 | Outpatient (REF) ==
[~2021-06-05] MED LIST changes: -BENA40TA5 PO; +BENA40TA84 PO
== END ==
LOC: M PLAIMG 15:04 → M PLALAB 15:04
PROVIDERS: ATTEND Internal Medicine
DX: M54.9 Dorsalgia, unspecified (principal); M51.36 Other intervertebral disc degeneration, lumbar region; M17.11 Unilateral primary osteoarthritis, right knee

== ENCOUNTER → 2021-08-27 | Outpatient (CLI) | payer OTHER ==
[2021-08-27 13:02] LABS: ALBUMIN 3.8 GM/DL (3.2-5.2); ALT/SGPT 28 U/L (12-78); BILIRUBIN,TOTAL 0.5 MG/DL (0.2-1.0); BLOOD UREA NITROGEN 10 MG/DL (7-18); CALCIUM LEVEL 9.6 MG/DL (8.5-10.1); CARBON DIOXIDE LEVEL 28 MEQ/L (21-32); CHLORIDE LEVEL 107 MEQ/L (98-107); CREATININE FOR GFR 0.76 MG/DL (0.70-1.30); GLOMERULAR FILTRATION RATE > 60.0 (>56); GLUCOSE, FASTING 91 MG/DL (70-100); POTASSIUM SERUM 3.4 MEQ/L (3.5-5.1); SODIUM LEVEL 140 MEQ/L (136-145); TOTAL PROTEIN 7.3 GM/DL (6.4-8.2)
== END ==
LOC: M LAB 11:29
PROVIDERS: ATTEND Student in an Organized Health Care Education/Training Program
DX: T14.8XXA Other injury of unspecified body region, initial encounter (principal)

== ENCOUNTER → 2021-09-14 | Outpatient (CLI) | payer OTHER ==
[2021-09-14 13:31] LABS: BASO # 0.1 10^3/uL (0.0-0.2); BASO % 1.1 % (0.0-1.0); EOS # 0.2 10^3/uL (0.0-0.5); EOS % 3.2 % (0.0-3.0); HEMATOCRIT 48.3 % (42.0-52.0); HEMOGLOBIN 15.7 g/dl (13.5-17.5); LYMPH # 2.3 10^3/uL (1.5-5.0); MEAN CORPUSCULAR HEMOGLOBIN 27.4 pg (27.0-33.0); MEAN CORPUSCULAR HGB CONC 32.5 g/dl (32.0-36.5); MEAN CORPUSCULAR VOLUME 84.1 fl (80.0-96.0); MONO # 0.7 10^3/uL (0.0-0.8); MONO % 10.2 % (2.0-8.0); NEUTROPHILS # 3.2 10^3/uL (1.5-8.5); PLATELET COUNT, AUTOMATED 283 10^3/uL (150-450); RED BLOOD COUNT 5.74 10^6/uL (4.30-6.10); WHITE BLOOD COUNT 6.5 10^3/uL (4.0-10.0)
[2021-09-14 14:03] LABS: ERYTHROCYTE SEDIMENTATION RATE 5 mm/hr (0-20)
== END ==
LOC: M PLALAB 11:40
PROVIDERS: ATTEND Physician Assistant
DX: M25.562 Pain in left knee (principal)

== ENCOUNTER → 2021-11-08 | Outpatient (CLI) | payer OTHER | LOC: M RAD 07:22 | PROVIDERS: ATTEND Physician Assistant | DX: M17.11 Unilateral primary osteoarthritis, right knee (principal); M25.562 Pain in left knee | CPT/HCPCS: 78315; A9503 ==

== ENCOUNTER → 2021-11-29 | Outpatient (CLI) | payer OTHER ==
[2021-11-29 13:17] LABS: BASO # 0.1 10^3/uL (0.0-0.2); BASO % 1.2 % (0.0-1.0); EOS # 0.3 10^3/uL (0.0-0.5); EOS % 3.9 % (0.0-3.0); HEMATOCRIT 45.8 % (42.0-52.0); HEMOGLOBIN 14.6 g/dl (13.5-17.5); LYMPH # 2.2 10^3/uL (1.5-5.0); LYMPH % 33.1 % (24.0-44.0); MEAN CORPUSCULAR HEMOGLOBIN 27.9 pg (27.0-33.0); MEAN CORPUSCULAR HGB CONC 31.9 g/dl (32.0-36.5); MEAN CORPUSCULAR VOLUME 87.4 fl (80.0-96.0); MONO # 0.6 10^3/uL (0.0-0.8); MONO % 9.5 % (2.0-8.0); NEUTROPHILS # 3.5 10^3/uL (1.5-8.5); NEUTROPHILS % 51.8 % (36.0-66.0); PLATELET COUNT, AUTOMATED 250 10^3/uL (150-450); RED BLOOD COUNT 5.24 10^6/uL (4.30-6.10); WHITE BLOOD COUNT 6.7 10^3/uL (4.0-10.0)
[2021-11-29 14:29] LABS: ALBUMIN 3.3 GM/DL (3.2-5.2); ALT/SGPT 26 U/L (12-78); BILIRUBIN,TOTAL 0.1 MG/DL (0.2-1.0); BLOOD UREA NITROGEN 13 MG/DL (7-18); CALCIUM LEVEL 9.2 MG/DL (8.5-10.1); CARBON DIOXIDE LEVEL 29 MEQ/L (21-32); CHLORIDE LEVEL 108 MEQ/L (98-107); CHOLESTEROL LEVEL 149 MG/DL (<200); CHOLESTEROL RISK RATIO 4.027 (<5); CREATININE FOR GFR 0.92 MG/DL (0.70-1.30); GLOMERULAR FILTRATION RATE > 60.0 (>56); GLUCOSE, FASTING 95 MG/DL (70-100); HDL CHOLESTEROL 37 MG/DL (>40); LDL CHOLESTEROL 85 MG/DL (<100); MAGNESIUM LEVEL 2.2 MG/DL (1.8-2.4); NON-HDL-C 112 MG/DL; POTASSIUM SERUM 3.7 MEQ/L (3.5-5.1); SODIUM LEVEL 141 MEQ/L (136-145); TOTAL PROTEIN 7.4 GM/DL (6.4-8.2); TRIGLYCERIDES LEVEL 135 MG/DL (<150)
[2021-11-30 00:50] LABS: HEMOGLOBIN A1c 5.7 %
== END ==
LOC: M PLALAB 09:36
PROVIDERS: ATTEND Student in an Organized Health Care Education/Training Program
DX: E78.2 Mixed hyperlipidemia (principal); R73.03 Prediabetes; E83.42 Hypomagnesemia

== ENCOUNTER → 2022-06-27 | Outpatient (CLI) | payer OTHER ==
[~2022-06-27] MED LIST changes: +CHLO125TA PO
== END ==
LOC: M LABSMTC 09:35
PROVIDERS: ATTEND Anesthesiology
DX: Z01.812 Encounter for preprocedural laboratory examination (principal)

== ENCOUNTER 2022-07-02 13:01 | Day surgery (SDC) | payer OTHER ==
[~2022-07-02] VITALS: Ht 177.8 cm; Wt 120.2 kg
[~2022-07-02 13:01] MED LIST changes: +NS 1,000 ML IV ONE
[2022-07-02] MEDS ORDERED: propofoL 200 MG/20 ML VIAL As Ordered ONE (14:33)
[2022-07-02] MEDS ORDERED: LIDOCAINE 2% 100MG/5ML SDV (FOR ANES.) As Ordered ONE (14:33)
[2022-07-02] MEDS ORDERED: fentaNYL 100 MCG/2 ML INJECTION As Ordered ONE (14:33)
[2022-07-02 16:00] VITALS: BP 169/72
== END 2022-07-02 16:15 | disposition home or self-care (01) ==
LOC: M OPP 13:01
PROVIDERS: ATTEND Internal Medicine Gastroenterology
DX: K22.70 Barrett's esophagus without dysplasia (principal); K44.9 Diaphragmatic hernia without obstruction or gangrene; I10 Essential (primary) hypertension; E78.5 Hyperlipidemia, unspecified; Z86.711 Personal history of pulmonary embolism; G47.33 Obstructive sleep apnea (adult) (pediatric); Z99.89 Dependence on other enabling machines and devices; Z79.01 Long term (current) use of anticoagulants; Z79.02 Long term (current) use of antithrombotics/antiplatelets; Z79.51 Long term (current) use of inhaled steroids; Z79.82 Long term (current) use of aspirin; Z79.899 Other long term (current) drug therapy; Z80.42 Family history of malignant neoplasm of prostate
CPT/HCPCS: 43239; 88305; J3010

== ENCOUNTER 2022-07-19 22:05 | Emergency (ER) | payer OTHER ==
[~2022-07-19] VITALS: Ht 177.8 cm; Wt 120.0 kg
[~2022-07-19 22:05] MED LIST changes: -NS 1,000 ML IV ONE
[2022-07-19 22:06] VITALS: BP 161/86
[2022-07-19] MEDS ORDERED: DOXYCYCLINE HYCLATE 100MG TABLET PO ONE (23:10)
[2022-07-19] MEDS ORDERED: DOXY-443 PO (23:28)
== END 2022-07-20 00:16 | disposition home or self-care (01) ==
LOC: M ED 22:05
DX: S30.861A Insect bite (nonvenomous) of abdominal wall, initial encounter (principal); X58.XXXA Exposure to other specified factors, initial encounter; Y92.89 Other specified places as the place of occurrence of the external cause; Y93.89 Activity, other specified; Y99.8 Other external cause status; L03.311 Cellulitis of abdominal wall; I10 Essential (primary) hypertension; E78.5 Hyperlipidemia, unspecified; Z79.899 Other long term (current) drug therapy; Z79.82 Long term (current) use of aspirin

== ENCOUNTER 2023-02-22 16:16 | Emergency (ER) | payer OTHER ==
[~2023-02-22] VITALS: Ht 177.8 cm; Wt 114.4 kg
[~2023-02-22 16:16] MED LIST changes: +DOXY-443 PO; +HYDR-3910 PO
[2023-02-22 17:52] LABS: BASO # 0.1 10^3/uL (0.0-0.2); BASO % 1.1 % (0.0-1.0); EOS # 0.2 10^3/uL (0.0-0.5); EOS % 2.5 % (0.0-3.0); HEMATOCRIT 43.2 % (42.0-52.0); HEMOGLOBIN 14.4 g/dl (13.5-17.5); LYMPH # 2.7 10^3/uL (1.5-5.0); LYMPH % 33.1 % (24.0-44.0); MEAN CORPUSCULAR HEMOGLOBIN 27.8 pg (27.0-33.0); MEAN CORPUSCULAR HGB CONC 33.3 g/dl (32.0-36.5); MEAN CORPUSCULAR VOLUME 83.4 fl (80.0-96.0); MONO # 0.7 10^3/uL (0.0-0.8); MONO % 8.2 % (2.0-8.0); NEUTROPHILS # 4.4 10^3/uL (1.5-8.5); NEUTROPHILS % 54.9 % (36.0-66.0); PLATELET COUNT, AUTOMATED 283 10^3/uL (150-450); RED BLOOD COUNT 5.18 10^6/uL (4.30-6.10); WHITE BLOOD COUNT 8.1 10^3/uL (4.0-10.0)
[2023-02-22 18:04] LABS: LIPASE 27 U/L (12-53)
[2023-02-22 18:06] LABS: CPK CREATINE PHOSPHOKINASE 112 U/L (46-171)
[2023-02-22 18:07] LABS: ALBUMIN 3.9 G/DL (3.2-5.2); ALKALINE PHOSPHATASE 62 U/L (46-116); ALT/SGPT 17 U/L (7.0-40); AST/SGOT 13 U/L (<34); BILIRUBIN,DIRECT 0.2 MG/DL (<0.4); BILIRUBIN,TOTAL 0.7 MG/DL (0.3-1.2); BLOOD UREA NITROGEN 17 MG/DL (9-23); CALCIUM LEVEL 9.2 MG/DL (8.5-10.1); CARBON DIOXIDE LEVEL 28 MMOL/L (20-31); CHLORIDE LEVEL 100 MMOL/L (98-107); CK-MB VALUE MASS 1.2 NG/ML (<3.6); CREATININE FOR GFR 0.82 MG/DL (0.70-1.30); GLOMERULAR FILTRATION RATE > 60.0 (>56); GLUCOSE, FASTING 88 MG/DL (60-100); MAGNESIUM LEVEL 1.9 MG/DL (1.8-2.4); MB/CK RELATIVE INDEX 1.07 (< OR =4); POTASSIUM SERUM 3.2 MMOL/L (3.5-5.1); SODIUM LEVEL 138 MMOL/L (136-145); TOTAL PROTEIN 7.3 G/DL (5.7-8.2)
[2023-02-22 18:10] LABS: THYROID STIMULATING HORMONE 1.523 uIU/ML (0.55-4.78)
[2023-02-22 19:17] LABS: CK-MB VALUE MASS 1.1 NG/ML (<3.6)
[2023-02-22 19:18] LABS: MB/CK RELATIVE INDEX 1.06 (< OR =4)
[2023-02-22] MEDS ORDERED: HOLTER MONITOR XX (19:56)
[2023-02-22 21:00] VITALS: BP 160/94
[2023-02-22 21:01] VITALS: TEMP 98.5; O2SAT 97
== END 2023-02-22 21:05 | disposition home or self-care (01) ==
LOC: M ED 16:16
DX: R07.89 Other chest pain (principal); R00.2 Palpitations; I10 Essential (primary) hypertension; Z79.899 Other long term (current) drug therapy

== ENCOUNTER → 2023-02-26 | Outpatient (CLI) | payer OTHER ==
[~2023-02-26] MED LIST changes: +HOLTER MONITOR XX
[2023-02-26 12:08] LABS: BASO # 0.1 10^3/uL (0.0-0.2); BASO % 1.3 % (0.0-1.0); EOS # 0.2 10^3/uL (0.0-0.5); EOS % 2.3 % (0.0-3.0); HEMATOCRIT 43.4 % (42.0-52.0); HEMOGLOBIN 14.4 g/dl (13.5-17.5); LYMPH # 2.6 10^3/uL (1.5-5.0); LYMPH % 37.4 % (24.0-44.0); MEAN CORPUSCULAR HGB CONC 33.2 g/dl (32.0-36.5); MEAN CORPUSCULAR VOLUME 84.4 fl (80.0-96.0); MONO # 0.7 10^3/uL (0.0-0.8); MONO % 10.2 % (2.0-8.0); NEUTROPHILS # 3.4 10^3/uL (1.5-8.5); NEUTROPHILS % 48.5 % (36.0-66.0); PLATELET COUNT, AUTOMATED 275 10^3/uL (150-450); RED BLOOD COUNT 5.14 10^6/uL (4.30-6.10)
[2023-02-26 12:34] LABS: CHOLESTEROL RISK RATIO 4.42 (<5); HDL CHOLESTEROL 37.5 MG/DL (>40); LDL CHOLESTEROL 105.5 MG/DL (<100); NON-HDL-C 128.5 MG/DL
== END ==
LOC: M LAB 10:47
PROVIDERS: ATTEND Internal Medicine Cardiovascular Disease
DX: I10 Essential (primary) hypertension (principal); E78.5 Hyperlipidemia, unspecified

== ENCOUNTER → 2023-02-26 | Outpatient (CLI) | payer OTHER | LOC: M EKG 10:53 | PROVIDERS: ATTEND Internal Medicine | DX: R00.2 Palpitations (principal) ==

== ENCOUNTER → 2023-04-25 | Outpatient (CLI) | payer OTHER | LOC: M CARPUL 11:09 | PROVIDERS: ATTEND Student in an Organized Health Care Education/Training Program | DX: I11.9 Hypertensive heart disease without heart failure (principal); I50.1 Left ventricular failure, unspecified; I08.0 Rheumatic disorders of both mitral and aortic valves; I71.21 Aneurysm of the ascending aorta, without rupture ==

== ENCOUNTER 2023-07-02 08:02 | Emergency (ER) | payer OTHER ==
[~2023-07-02] VITALS: Ht 177.8 cm; Wt 120.5 kg
[~2023-07-02 08:02] MED LIST changes: -HYDR-3910 PO; +HYDR25TA87 PO
[2023-07-02] MEDS: FLUORESCEIN OPHTH 1MG STRIP OS ONE (11:40)
[2023-07-02] MEDS: TETRACAINE 0.5% OPHTH SOLN 4ML OS ONE (11:45)
[2023-07-02 12:19] VITALS: BP 148/88; TEMP 97.7; O2SAT 97
== END 2023-07-02 12:20 | disposition home or self-care (01) ==
LOC: M ED 08:02
DX: H57.12 Ocular pain, left eye (principal); I10 Essential (primary) hypertension; Z79.899 Other long term (current) drug therapy

== ENCOUNTER 2024-04-28 13:43 | Emergency (ER) | payer OTHER ==
[~2024-04-28] VITALS: Ht 177.8 cm; Wt 124.4 kg
[~2024-04-28 13:43] MED LIST changes: +DOXY-441 PO; -DOXY-443 PO; +ONDA-282 PO; -ONDA4TAB6 PO
[2024-04-28] MEDS: ACETAMINOPHEN 500 MG TAB PO ONE (14:55)
[2024-04-28] MEDS ORDERED: OSEL75CA PO (17:27)
[2024-04-28] MEDS: OSELTAMIVIR PHOSPHATE 75 MG CAP (TAMIFLU) PO ONE (17:37)
[2024-04-28 17:44] VITALS: BP 140/90; TEMP 99.7; O2SAT 95
== END 2024-04-28 17:47 | disposition home or self-care (01) ==
LOC: M ED 13:43
DX: J09.X2 Influenza due to identified novel influenza A virus with other respiratory manifestations (principal); Z79.899 Other long term (current) drug therapy

== ENCOUNTER 2024-05-16 12:22 | Observation (INO) | payer OTHER ==
[~2024-05-16] VITALS: Ht 177.8 cm; Wt 128.7 kg
[~2024-05-16 12:22] MED LIST changes: +OSEL75CA PO
[2024-05-16] MEDS ORDERED: ISOVUE-370 76% 100ML VIAL As Ordered ONE (13:35)
[2024-05-16 13:38] LABS: BASO # 0.1 10^3/uL (0.0-0.2); EOS # 0.2 10^3/uL (0.0-0.5); EOS % 2.6 % (0.0-3.0); HEMATOCRIT 46.7 % (42.0-52.0); HEMOGLOBIN 15.5 g/dl (13.5-17.5); LYMPH # 2.1 10^3/uL (1.5-5.0); LYMPH % 34.2 % (24.0-44.0); MEAN CORPUSCULAR HEMOGLOBIN 27.1 pg (27.0-33.0); MEAN CORPUSCULAR HGB CONC 33.2 g/dl (32.0-36.5); MEAN CORPUSCULAR VOLUME 81.8 fl (80.0-96.0); MONO # 0.9 10^3/uL (0.0-0.8); MONO % 14.5 % (2.0-8.0); NEUTROPHILS # 2.9 10^3/uL (1.5-8.5); NEUTROPHILS % 47.5 % (36.0-66.0); PLATELET COUNT, AUTOMATED 252 10^3/uL (150-450); RED BLOOD COUNT 5.71 10^6/uL (4.30-6.10); WHITE BLOOD COUNT 6.2 10^3/uL (4.0-10.0)
[2024-05-16 13:59] LABS: ALBUMIN 3.5 G/DL (3.2-5.2); ALKALINE PHOSPHATASE 74 U/L (40-129); ALT/SGPT 22 U/L (7.0-40); AST/SGOT 21 U/L (<34); BILIRUBIN,DIRECT 0.1 MG/DL (<0.4); BILIRUBIN,TOTAL 0.5 MG/DL (0.3-1.2); BLOOD UREA NITROGEN 10 MG/DL (9-23); CALCIUM LEVEL 9.1 MG/DL (8.5-10.1); CARBON DIOXIDE LEVEL 25 MMOL/L (20-31); CHLORIDE LEVEL 107 MMOL/L (98-107); CREATININE FOR GFR 0.81 MG/DL (0.70-1.30); GLOMERULAR FILTRATION RATE > 60.0 (>56); GLUCOSE, FASTING 110 MG/DL (60-100); POTASSIUM SERUM 3.7 MMOL/L (3.5-5.1); SODIUM LEVEL 143 MMOL/L (136-145); TOTAL PROTEIN 7.4 G/DL (5.7-8.2)
[2024-05-16 14:03] LABS: INR 0.95; PARTIAL THROMBOPLASTIN TIME 25.8 SECONDS (24.8-34.2)
[2024-05-16] MEDS ORDERED: HYDR25TA87 PO (15:46)
[2024-05-16] MEDS ORDERED: ALBU8.5H INH (15:49)
[2024-05-16] MEDS ORDERED: HOME MED LIST COMPLETE! XX SCH (15:55)
[2024-05-16 17:12] LABS: HEMOGLOBIN A1c 6.3 % (4.0-6.0)
[2024-05-16 17:49] VITALS: BP 162/90; TEMP 97.2; O2SAT 95
[2024-05-16] MEDS ORDERED: ALBUTEROL 90 MCG/ACT 8GM HFA INHALER INH PRN (18:00)
[2024-05-16] MEDS: ACETAMINOPHEN 325 MG TAB PO PRN (18:34)
[2024-05-16] MEDS: ATORVASTATIN 20 MG TAB PO SCH (18:34)
[2024-05-16] MEDS: ASPIRIN 81MG ENTERIC TABLET PO SCH (18:34)
[2024-05-16] MEDS: CLOPIDOGREL 75 MG TAB PO SCH (18:34)
[2024-05-16 20:00] VITALS: BP 142/81; TEMP 97.3
[2024-05-16] MEDS: **hydrALAZINE HCL** 25 MG TAB PO SCH (21:02)
[2024-05-16] MEDS: ENOXAPARIN 40MG/0.4ML SYRINGE (J1650 PER 10MG) SC SCH (21:02)
[2024-05-16 23:56] VITALS: BP 132/79; TEMP 98; O2SAT 96
[2024-05-17 05:46] LABS: CHOLESTEROL RISK RATIO 5.04 (<5); HDL CHOLESTEROL 32.9 MG/DL (>40); LDL CHOLESTEROL 105.7 MG/DL (<100); NON-HDL-C 133.1 MG/DL
[2024-05-17 05:48] LABS: THYROID STIMULATING HORMONE 1.429 uIU/ML (0.55-4.78)
[2024-05-17 05:49] LABS: FREE T4 1.04 NG/DL (0.89-1.76)
[2024-05-17 08:00] VITALS: BP 147/85; TEMP 97.4; O2SAT 95
[2024-05-17 09:13] VITALS: BP 147/85
[2024-05-17] MEDS: BENAZEPRIL 20 MG TAB PO SCH (09:14)
[2024-05-17] MEDS: OMEPRAZOLE 20MG CAP PO SCH (09:14)
[2024-05-17] MEDS: CHLORTHALIDONE 25 MG TAB PO SCH (09:15)
[2024-05-17] MEDS ORDERED: ASPI81TAEC PO (11:11)
[2024-05-17] MEDS ORDERED: ATOR1TAB21 PO (11:11)
[2024-05-17] MEDS ORDERED: VITA200048 PO (11:11)
[2024-05-17] MEDS ORDERED: CLOP75TA2 PO (11:11)
[2024-05-17] MEDS ORDERED: METF-839 PO (11:20)
[2024-05-17 12:00] VITALS: BP 155/81; TEMP 97.7; O2SAT 94
[2024-05-17] MEDS: VITAMIN D 50,000 UNITS CAPSULE (ERGOCALCIFEROL 1.25MG) PO ONE (13:54)
== END 2024-05-17 14:13 | disposition home or self-care (01) ==
LOC: M ED 12:22 → INTOOBSV 15:48 → M ED INP 15:48 → M PCU 17:17
PROVIDERS: ADMIT Student in an Organized Health Care Education/Training Program; ATTEND Student in an Organized Health Care Education/Training Program
DX: G45.9 Transient cerebral ischemic attack, unspecified (principal); R73.03 Prediabetes; E78.5 Hyperlipidemia, unspecified; E55.9 Vitamin D deficiency, unspecified; I10 Essential (primary) hypertension; Z96.652 Presence of left artificial knee joint; Z87.891 Personal history of nicotine dependence; F10.11 Alcohol abuse, in remission; Z83.3 Family history of diabetes mellitus; Z82.49 Family history of ischemic heart disease and other diseases of the circulatory system; Z79.899 Other long term (current) drug therapy
CPT/HCPCS: 36415; 70450; 70496; 70498; 70544; 70551; 71045; 80047; 80048; 80061; 80076; 82306; 82607; 83036; 83735; 84439; 84443; 85025; 85610; 85730; 93005; 93041; 93306; 94760; 96372; 99285; J1650; Q9967

== ENCOUNTER → 2024-08-05 | Outpatient (CLI) | payer OTHER ==
[~2024-08-05] MED LIST changes: +ALBU8.5H INH; +ASPI81TAEC PO; +ATOR1TAB21 PO; +CLOP75TA2 PO; +METF-839 PO; +VITA200048 PO
== END ==
LOC: M CARPUL 08:16
PROVIDERS: ATTEND Physician Assistant
DX: R94.31 Abnormal electrocardiogram [ECG] [EKG] (principal)

== ENCOUNTER → 2024-12-13 | Outpatient (CLI) | payer OTHER ==
[~2024-12-13] MED LIST changes: -FLOM0.4C39 PO; +TAMS-18 PO
[2024-12-13 17:46] LABS: INR 0.95
[2024-12-13 17:57] LABS: CALCIUM LEVEL 8.9 MG/DL (8.5-10.1); CARBON DIOXIDE LEVEL 30.0 MMOL/L (20-31); CHLORIDE LEVEL 101.0 MMOL/L (98-107); CREATININE FOR GFR 0.99 MG/DL (0.70-1.30); GLOMERULAR FILTRATION RATE 88.3 (>56); POTASSIUM SERUM 3.4 MMOL/L (3.5-5.1); SODIUM LEVEL 143.0 MMOL/L (136-145)
== END ==
LOC: M LAB 17:09
PROVIDERS: ATTEND Student in an Organized Health Care Education/Training Program
DX: Z01.818 Encounter for other preprocedural examination (principal); E11.9 Type 2 diabetes mellitus without complications

== ENCOUNTER → 2024-12-30 | Outpatient (CLI) | payer OTHER ==
[2024-12-30 11:49] LABS: ALT/SGPT 22 U/L (7.0-40); AST/SGOT 18 U/L (<34); CALCIUM LEVEL 9.4 MG/DL (8.5-10.1); CARBON DIOXIDE LEVEL 28 MMOL/L (20-31); CHLORIDE LEVEL 102 MMOL/L (98-107); CHOLESTEROL LEVEL 126 MG/DL (<200); CHOLESTEROL RISK RATIO 3.91 (<5); CREATININE FOR GFR 0.91 MG/DL (0.70-1.30); GLOMERULAR FILTRATION RATE > 90.0 (>56); LDL CHOLESTEROL 60.4 MG/DL (<100); NON-HDL-C 93.8 MG/DL; POTASSIUM SERUM 4.1 MMOL/L (3.5-5.1); SODIUM LEVEL 140 MMOL/L (136-145); TRIGLYCERIDES LEVEL 167 MG/DL (<150)
== END ==
LOC: M PLALAB 08:41
PROVIDERS: ATTEND Physician Assistant
DX: E78.49 Other hyperlipidemia (principal)

== ENCOUNTER → 2025-01-28 | Outpatient (CLI) | payer OTHER | LOC: M RAD 07:03 | PROVIDERS: ATTEND Physician Assistant | DX: I11.0 Hypertensive heart disease with heart failure (principal); I50.9 Heart failure, unspecified ==

== ENCOUNTER → 2025-02-23 | Outpatient (CLI) | payer OTHER | LOC: M SLEEP HO 10:37 | PROVIDERS: ATTEND Physician Assistant | DX: G47.33 Obstructive sleep apnea (adult) (pediatric) (principal) ==